=== PATIENT | male | born 1955 | race African-American/Black ===

== ENCOUNTER 2016-05-08 19:12 | Inpatient (IN) | payer MEDICARE, SELFPAY ==
--- NOTE | ~2016-05-08 | PN ---
Unit #: [id number] #: [id number] Patient: KYLER ROJAS [id number] [facility] [address] [place] [address] [id number] I MR#: [id number] NAME: KYLER ROJAS SR ROOM: P174 Age: 60 Sex: M Admission Date: 05/08/2016 : 1955 Attending Physician: Agnieszka Bowen M.D. Admitting Physician: Agnieszka Bowen M.D. Primary Care Physician: Primary Care Physician Joanna GAMEZ PROGRESS NOTES DATE OF SERVICE: 05/12/2016 SUBJECTIVE Mr. Rojas is a 60-year-old male with substance abuse and mood disorder, who was seen today and chart was reviewed and the case was discussed with the staff. He has been anxious, withdrawn, and rather seclusive to himself and remained confused, anxious, restless, and has been urinating on the bed guerrero and has had a wheelchair next to him as he has not been able to function very well and has been unsteady on his feet and stated there is some delirium tremens like episode. MENTAL STATUS EXAMINATION Middle-aged male, who was casually dressed with marginal personal hygiene, appears to be in slight distress and discomfort. He was awake and alert with impaired attention and concentration. His mood was anxious with a congruent affect. His speech was slow and restricted in content. His thought processes were disorganized with some looseness of associations. His insight and judgment remain significantly impaired. TREATMENT PLAN 1. We will continue him on his current medications and treatment protocol. We will monitor his response and make further adjustments as needed. 2. We will continue to follow up. Dictated by... Dank Haney/phani TD: 05/12/2016 17:13 JOB #: [id number] Unit #: [id number] #: [id number] Patient: KYLER ROJAS [facility] PROGRESS NOTES X Agnieszka Bowen MD PROGRESS NOTE
--- NOTE | ~2016-05-08 | DS ---
Unit #: [id number] #: [id number] Patient: KYLER ROJAS SR [id number] [facility] [address] [place] [address] [id number] MR#: [id number] NAME: KYLER ROJAS SR ROOM: P174 Age: 60 Sex: M Admission Date: 05/08/2016 : 1955 Discharge Date: 05/15/2016 Attending Physician: Agnieszka Bowen M.D. Primary Care Physician: Primary Care Physician No DISCHARGE SUMMARY IDENTIFYING DATA Mr. Rojas is a 60-year-old male, who is a resident of [place], [place], and is known to us from previous encounter, was transferred to us from Emergency [facility] at [facility]. DISCHARGE DIAGNOSES Psychiatric: Major depressive disorder, recurrent, moderate, without psychotic features; alcohol dependence, moderate and acute withdrawals. Medical: Hypertension, diabetes mellitus, chronic pain. Stressors: Moderate psychosocial stressors. HISTORY OF PRESENT ILLNESS Please see initial psychiatric evaluation for details. PAST PSYCHIATRIC HISTORY Please see initial psychiatric evaluation for details. PAST MEDICAL HISTORY Please see initial psychiatric evaluation for details. HOSPITAL COURSE The patient was admitted to the adult chemical dependency unit at [facility] and was oriented to the hospital environment. Routine p.r.n. medications were initiated and was started on the alcohol detox protocol and was closely monitored. However, he had a rather complicated course and did go into delirium tremens and level of precautions were increased and he was closely monitored. Medications were adjusted as well and Seroquel to cut down on psychosis and help with sleep was initiated as well and he was closely monitored. He was taking the medications regularly and was tolerating them fairly well and was able to come out of the detox without any complications and was willing to continue treatment on an outpatient basis and as such, it was decided that he will be discharged home and will continue treatment on an outpatient basis. DISCHARGE CONDITION Stable. PROGNOSIS Fair. Dictated by... Unit #: [id number] #: [id number] Patient: KYLER ROJAS SR Agnieszka Bowen M.D. IAA/modl TD: 05/15/2016 23:37 JOB #: [id number] DISCHARGE SUMMARY Page 1 of 1 X Agnieszka Bowen MD DISCHARGE SUMMARY
--- NOTE | ~2016-05-08 | PN ---
Unit #: [id number] #: [id number] Patient: KYLER ROJAS [id number] [facility] [address] [place] [address] [id number] MR#: [id number] NAME: KYLER ROJAS SR ROOM: P174 Age: 60 Sex: M Admission Date: 05/08/2016 : 1955 Attending Physician: Agnieszka Bowen M.D. Admitting Physician: Agnieszka Bowen M.D. Primary Care Physician: Primary Care Physician Joanna GAMEZ PROGRESS NOTES DATE OF SERVICE: 05/13/2016 SUBJECTIVE Mr. Rojas is a 60-year-old male who was seen today and chart was reviewed and case was discussed with the staff. He remains anxious, withdrawn, seclusive to himself in his bed, and has not been able to perform activities of daily living. It appears that his confusion has been dissipating slowly. Meanwhile, he is now compliant with treatment recommendation and has been taking the medications and tolerating them fairly well. MENTAL STATUS EXAMINATION Middle-aged male who was casually dressed with marginal personal hygiene, appears to be in slight distress and discomfort. He was awake and alert with impaired attention and concentration. His mood was anxious with a congruent affect. He denies any suicidal or homicidal ideations. His insight and judgment remain slightly impaired. TREATMENT PLAN We will continue him on his current medications and treatment protocol. We will monitor his response to the medications and make further adjustments as needed. Dictated by... Dank Haney/phani TD: 05/14/2016 18:13 JOB #: [id number] [facility] PROGRESS NOTES Page 1 of 1 X Agnieszka Bowen MD X PROGRESS NOTE
--- NOTE | ~2016-05-08 | HP ---
Unit #: [id number] #: [id number] Patient: KYLER ROJAS SR [id number] [place] [address] [id number] I MR#: [id number] NAME: KYLER ROJAS SR ROOM: P174 Age: 60 Sex: M Admission Date: 05/08/2016 : 1955 Attending Physician: Agnieszka Bowen M.D. Admitting Physician: Agnieszka Bowen M.D. Primary Care Physician: Primary Care Physician No HISTORY AND PHYSICAL HISTORY OF PRESENT ILLNESS Kyler is a 60 year old admitted to [facility] because of his abuse of alcohol. He is detoxing. PAST MEDICAL HISTORY 1. Long history of alcohol abuse. 2. Cardiac valvular disease. PAST SURGICAL HISTORY 1. Left hip replaced with multiple revisions. 2. Intestinal resection. 3. 2 cardiac valves replaced. 4. Left foot. ALLERGIES No known drug allergies. SOCIAL HISTORY Smokes less than one pack per day. Drinks at least four 24 ounce beers on a daily basis and denied illicit drug use. FAMILY HISTORY Medically noncontributory. REVIEW OF SYSTEMS CONSTITUTIONAL: No fever or chills. HEENT: Denies any sore throat, ear pain or runny nose. CARDIOVASCULAR: Denies chest pain, irregular heart rhythm or palpitations. CHEST: Denies shortness of breath or cough. No hemoptysis. GASTROINTESTINAL: Denies nausea, vomiting, diarrhea or chronic constipation. ENDOCRINE: Denies history of increased thirst or urination. No recent significant weight loss or gain. GENITOURINARY: Denies dysuria, frequency, or hematuria. SKIN: Denies any rashes. HEMATOLOGIC: Denies history of increased bleeding or bruising. MUSCULOSKELETAL: Denies any hot, swollen joints. No generalized muscle pain. NEUROLOGIC: Denies problems with vision or speech. No frequent, severe headaches. No numbness, tingling or weakness in any extremities. Denies loss of bladder or bowel control. Unit #: [id number] #: [id number] Patient: KYLER ROJAS SR CURRENT MEDICATIONS 1. Detox protocol 2. Lexapro 20 mg daily 3. Lortab 7.5 1 tab q.4 hr. p.r.n. PHYSICAL EXAMINATION GENERAL: Alert, elderly gentleman appearing much much older than his stated age of 60. No apparent distress. VITAL SIGNS: Blood pressure 140/105, heart rate 80, respirations 16, temperature 98.6. WEIGHT: 149 pounds. HEIGHT: 5'8". SKIN: Warm and dry without rash or lesion. HEENT: Normocephalic. TMs not viewed. Oral and nasal passages clear. Conjunctivae clear. Pupils equal, round and reactive to light and accommodation. Extraocular movements intact. NECK: Supple without lymphadenopathy or thyromegaly. HEART: Regular rate and rhythm with a 3 to 4 over 6 harsh holosystolic murmur. LUNGS: Clear. ABDOMEN: Soft, nontender. : Not done. EXTREMITIES: No evidence of cyanosis, clubbing or edema. Moves all extremities without focal deficit. NEUROLOGICAL: Grossly within normal limits. Cranial Nerves: II: Visual kong are intact. III, IV AND : Extraocular movements are intact. Pupils are equal, round and reactive to light. V: Facial sensation is grossly normal. VII: Facial movements and expression are normal. VIII: Auditory acuity grossly intact. IX, X: Uvula is midline. Phonation is normal. XI: Patient shrugs shoulders and turns head normally. XII: Tongue protrudes in the midline. Sensory and Motor Function: Sensory and motor sensation is grossly normal. Motor: moves all extremities well. Coordination: Gait he does walk with the assistance of a cane and is currently one to one because he is unsteady on his feet. Deep Tendon Reflexes: Intact. IMPRESSION Psychiatric admission RECOMMENDATIONS PSYCHIATRIC: Per psychiatrist. MEDICAL: I see no contraindications to participating in facility's activities. MEDICAL PROGNOSIS Good. MEDICAL CONDITION Stable. Dictated by... Nikki Cheek P.A.-C. for Unit #: [id number] #: [id number] Patient: KYLER ROJAS Dank Marquis/ignacio TD: 05/09/2016 21:05 JOB #: [id number] HISTORY AND PHYSICAL X Nikki Cheek HISTORY AND PHYSICAL
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
--- NOTE | ~2016-05-08 | PN ---
Unit #: [id number] #: [id number] Patient: KYLER ROJAS [id number] [facility] [address] [place] [address] [id number] I MR#: [id number] NAME: KYLER ROJAS SR ROOM: P174 Age: 60 Sex: M Admission Date: 05/08/2016 : 1955 Attending Physician: Agnieszka Bowen M.D. Admitting Physician: Agnieszka Bowen M.D. Primary Care Physician: Primary Care Physician No [facility] PROGRESS NOTES DATE OF SERVICE 05/14/2016 DISCUSSION Mr. Rojas is a 60-year-old male with substance abuse and mood disorder who was seen today. Chart was reviewed and case was discussed with the staff. He remains anxious, withdrawn, depressed, and rather seclusive to himself. Meanwhile, he has been complaining of still having some significant pain in his back. However, he has been awake and alert and appears to be coming out of the delusion tremens without any further confusion or disorientation. MENTAL STATUS EXAMINATION Middle-aged male who is casually dressed with fair personal hygiene, appears to be in no acute distress or discomfort. He was awake and alert with impaired attention and concentration. His mood is anxious and depressed with congruent affect. His speech is slow and restricted in content. He denies any suicidal or homicidal ideations and also denies any auditory or visual hallucinations. His insight and judgment remain slightly impaired. TREATMENT PLAN 1. We will continue him on his current treatment protocol. We will monitor his response to the medications and make further adjustments as needed. 2. We will continue to follow up. Dictated by... Dank Haney/hilda TD: 05/15/2016 11:56 JOB #: [id number] Unit #: [id number] #: [id number] Patient: KYLER ROJAS SR [facility] PROGRESS NOTES Page 1 of 1 X Agnieszka Bowen MD X PROGRESS NOTE
--- NOTE | ~2016-05-08 | PN ---
Unit #: [id number] #: [id number] Patient: KYLER ROJAS [id number] [facility] [address] [place] [address] [id number] MR#: [id number] NAME: KYLER ROJAS SR ROOM: P174 Age: 60 Sex: M Admission Date: 05/08/2016 : 1955 Attending Physician: Agnieszka Bowen M.D. Admitting Physician: Agnieszka Bowen M.D. Primary Care Physician: Primary Care Physician Joanna DILLARD NOTES DATE OF SERVICE: 05/11/2016 SUBJECTIVE Mr. Roajs is a 60-year-old male with mood disorder and substance abuse, who was seen today and chart was reviewed, and case was discussed with the staff. He is in acute delirium tremens with confusion, disorientation, unable to carry on any meaningful conversation, and as such, has been maintained on one-to-one level of precautions. MENTAL STATUS EXAMINATION Middle-aged male, who was casually dressed with fair personal hygiene, appears to be in no acute distress or discomfort. He was awake and alert with impaired attention and concentration. His mood was anxious with a congruent affect. His speech was slow and restricted in content. His thought processes were disorganized with looseness of associations and thought blocking and confusion with paranoid ideation. His insight and judgment remain significantly impaired. TREATMENT PLAN 1. We will continue him on his current medications and treatment protocol. We will monitor his response to the medications and make further adjustments as needed. 2. We will continue to follow up. Dictated by... Dank Haney/phani TD: 05/11/2016 23:33 JOB #: [id number] [facility] PROGRESS NOTES X Agnieszka Bowen MD X PROGRESS NOTE
--- NOTE | ~2016-05-08 | PN ---
Unit #: [id number] #: [id number] Patient: KYLER ROJAS [id number] [facility] [address] [place] [address] [id number] I MR#: [id number] NAME: KYLER ROJAS SR ROOM: P174 Age: 60 Sex: M Admission Date: 05/08/2016 : 1955 Attending Physician: Agnieszka Bowen M.D. Admitting Physician: Agnieszka Bowen M.D. Primary Care Physician: Primary Care Physician Joanna GAMEZ PROGRESS NOTES DATE OF SERVICE: 05/10/2016 SUBJECTIVE Mr. Rojas is a 60-year-old male with substance abuse and mood disorder, who was seen today and chart was reviewed and the case was discussed with the staff, who reports that the patient has gone into delirium tremens and was seen to be rather unsteady in his feet as of yesterday and was having some fall however, and it started getting worse later on in the afternoon or early evening when he was tremors, was confused, anxious, restless, disorganized, disoriented, and had to be placed on one-to-one level of precautions, where he was seen lying in his bed and was unable to carry on a meaningful conversation. MENTAL STATUS EXAMINATION Middle-aged male, who was casually dressed with a fair personal hygiene, appears to be in slight distress and discomfort. He was confused and disoriented and as such, rest of the mental status examination could not be completed. TREATMENT PLAN We will continue him on his current medications and detox protocol and we will monitor his response and make further adjustments as needed. Dictated by... Dank Haney/phani TD: 05/10/2016 20:08 JOB #: [id number] [facility] PROGRESS NOTES X Agnieszka Bowen MD PROGRESS NOTE
[2016-05-11 09:30] LABS: URINE APPEARANCE CLEAR; URINE BILIRUBIN NEG (NEG); URINE BLOOD NEG (NEG); URINE COLOR YELLOW; URINE GLUCOSE NEG (NEG); URINE KETONE NEG (NEG); URINE LEUKOCYTE ESTERASE NEG (NEG); URINE NITRATE NEG (NEG); URINE PH 5.5 (5-8); URINE PROTEIN NEG (NEG); URINE SPECIFIC GRAVITY 1.014 (1.003-1.035); URINE UROBILINOGEN 0.2 MG/DL (NEG)
[2016-05-11 10:00] LABS: AMPHETAMINE NEG (NEG); BARBITURATES NEG (NEG); BENZODIAZEPINES POS (NEG); COCAINE NEG (NEG); MARIJUANA NEG (NEG); OPIATES POS (NEG); TRICYCLIC ANTIDEPRESSANTS POS (NEG); U METHADONE NEG (NEG)
== END 2016-05-15 09:40 | disposition home or self-care (01) | DRG 885 ==
LOC: P1E 19:12 → POF 22:09 → P1E 22:10
PROVIDERS: Psychiatry & Neurology Psychiatry
PROC: HZ2ZZZZ Detoxification Services for Substance Abuse Treatment (ICD-10-PCS; principal; 2016-05-08)
DX: F33.1 Major depressive disorder, recurrent, moderate (principal); F10.231 Alcohol dependence with withdrawal delirium; F10.230 Alcohol dependence with withdrawal, uncomplicated; I10 Essential (primary) hypertension; E11.9 Type 2 diabetes mellitus without complications; Z79.4 Long term (current) use of insulin; G89.29 Other chronic pain; Y90.0 Blood alcohol level of less than 20 mg/100 ml
CPT/HCPCS: 80307; 81003; 86592

== ENCOUNTER → 2016-07-31 | Outpatient (CLI) | payer MEDICARE, SELFPAY ==
--- NOTE | ~2016-07-31 | CT57 ---
[facility] A Service [facility] RADIOLOGY TEXT RESULTS PATIENT: KYLER ROJAS SR LOCATION: [facility] : 59 UNIT #: [id number] AGE: [address]: LIZY ROMAN MD SEX: M ORDER DR: [id number] [address] [address] [id number] O MR#: [id number] Acc #: [id number] NAME: KYLER ROJAS : 1955 SEX: M STUDY DATE/TIME: 07/31/2016 11:29 UNIT: [facility] ROOM: STUDY DESCRIPTION: CT Chest Wo Cont Attending Physician: Lizy Roman M.D. Referring Physician: Lizy Roman M.D. Ordering Physician: Lizy Roman M.D. Primary Care Physician: Lizy Roman M.D. MEDICAL IMAGING REPORT This report is preliminary unless electronic signature is present. EXAM CT chest without contrast DATE 07/31/2016 HISTORY 60-year-old male with shortness of breath for 1 year or more, getting worse. Recently diagnosed with a pulmonary nodule at the physician's office. History of sickle cell disease, heart surgery 1-2 years ago with valve replacement. COMPARISON AP portable chest radiograph 06/30/2015. There is no more recent chest imaging at this institution for comparison. No prior CT chest at this institution. PROCEDURE 2 mm noncontrast axial images through the chest. Sagittal and coronal reformatted images were obtained. This CT exam was performed with one or more of the following radiation dose reduction techniques: automatic control, adjustment of mA and/or kV according to patient size, and iterative reconstruction. FINDINGS Severe emphysematous changes are present. Band-like scarring is demonstrated anteriorly within the right upper lobe, within the left lower lobe at the costophrenic angle, to a lesser degree at lingula and right mid lobe. Traction bronchiectasis or cylindrical bronchiectatic changes are demonstrated within the right middle lobe. Cylindrical bronchiectasis in the bilateral lower lobes. No abnormal bronchial wall thickening or mucous plugging. [facility] A Service of [facility] RADIOLOGY TEXT RESULTS PATIENT: KYLER ROJAS SR LOCATION: [facility] : 59 UNIT #: [id number] AGE: [address]: LIZY ROMAN MD SEX: M ORDER DR: No suspicious pulmonary nodules are identified. No acute airspace disease. There is mild cardiac enlargement with signs of aortic valve replacement. Pulmonary valve replacement also noted. There is ectasia of the mid ascending thoracic aorta, 3.9 cm and ectasia in the mid descending thoracic aorta, 2.9 cm. Mildly enlarged bilateral axillary lymph nodes are present, including a left axillary node measuring 1.5 x 1 cm. Enlarged mediastinal lymph nodes are present, including a right lower paratracheal node measuring 1.4 x 2 cm short axis, and an AP window node measuring approximately 2.1 x 1.3 cm. 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 Presumed cholecystectomy. Trace perihepatic ascites. What appear to be small varicosities or splenic nodule remnants are thought to be present in the left upper quadrant of the abdomen. No acute appearing osseous abnormalities. IMPRESSION 1. No suspicious pulmonary nodules are seen on today's CT chest examination. Patient states that he had imaging at referring physician's office recently. The location of this examination, images or results are not available or not provided at the time of this interpretation. Please correlate with those recent findings. 2. Severe emphysema. 3. Chronic-appearing linear scarring within the bilateral lower lobes, right middle lobe, right upper lobe. 4. Cylindrical bronchiectasis in the bilateral lower lobes and right middle lobe. No evidence of mucous plugging or abnormal bronchial wall thickening. 5. Mildly enlarged mediastinal lymph nodes particularly within the right paratracheal and prevascular region, mildly prominent bilateral axillary lymph nodes. These findings are nonspecific and could be related to patient's known history of sickle cell disease. Both benign and malignant etiologies remain in the differential. Correlate with any outside available CT chest. No prior CT chest at this institution. Alternately, [address] chest follow-up would be recommended. 6. 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 7. 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 8. 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 9. Trace peripelvic ascites. 10. Presumed cholecystectomy. 1. STS. [facility] A Service of [facility] RADIOLOGY TEXT RESULTS PATIENT: KYLER ROJAS SR LOCATION: [facility] : 59 UNIT #: [id number] AGE: [address]: LIZY ROMAN MD SEX: M ORDER DR: Dictated by... Riya Brenner M.D. THIS IS AN ELECTRONICALLY VERIFIED REPORT Riya Brenner M.D. at 08/03/2016 8:39 AM EL/jennifer TD: 08/01/2016 18:59 JOB #: [id number] MEDICAL IMAGING REPORT Page 1 of 1
== END | disposition home or self-care (01) ==
LOC: SCT 07-11 11:40
DX: R91.1 Solitary pulmonary nodule (principal); J43.9 Emphysema, unspecified; J47.9 Bronchiectasis, uncomplicated; R59.0 Localized enlarged lymph nodes; I77.810 Thoracic aortic ectasia; Z95.2 Presence of prosthetic heart valve
CPT/HCPCS: 71250

== ENCOUNTER → 2016-08-17 | Outpatient (CLI) | payer MEDICARE, SELFPAY ==
--- NOTE | ~2016-08-17 | TH ---
Unit #: [id number] #: [id number] Patient: KYLER ROJAS [id number] [address] [address] [id number] O MR#: [id number] NAME: KYLER ROJAS, : 1955 SEX: M STUDY DATE/TIME: 08/17/2016 UNIT: [facility] ROOM: STUDY DESCRIPTION: Attending Physician: Alayna Cheung M.D. Referring Physician: Alayna Cheung M.D. Primary Care Physician: Alayna Cheung M.D. CARDIOLOGY REPORT EXAM Lexiscan Cardiolite stress test, nuclear portion. PROCEDURE Using technetium 99m labeled Cardiolite, rest and stress SPECT images were obtained. Multiple SPECT images were obtained in various views including horizontal and vertical long axis and short axis views of the left ventricle. Images were obtained by gated SPECT method. The patient was administered 12 mCi of Cardiolite at rest. Patient was administered 32.3 mCi of Cardiolite after Lexiscan infusion was completed. On the stress images, there is mild decreased isotope activity in the inferoseptal wall. The rest images show normal perfusion. Comparing rest and stress images, a small area of possible stress-induced ischemia involving the inferoseptal wall of the left ventricle cannot be ruled out. The left ventricular ejection fraction is calculated to be 55%. There is septal hypokinesis seen. CONCLUSION 1. A small area of stress-induced ischemia involving the inferoseptal wall of the left ventricle cannot be ruled out. 2. The left ventricular ejection fraction is calculated to be 55%. 3. There is septal hypokinesis seen. 4. Abnormal Lexiscan Cardiolite stress test. 5. Technically limited study due to increased gut uptake. Clinical correlation is requested. Dictated by... Dank Munoz TD: 08/17/2016 16:20 JOB #: [id number] Unit #: [id number] #: [id number] Patient: KYLER ROJAS CARDIOLOGY REPORT Page 1 of 1 X Trish Prince MD <ELECTRONICALLY SIGNED> 09/15/16 1429 CARDIOLOGY REPORT
== END | disposition home or self-care (01) ==
LOC: CNUC 06:39
DX: R06.00 Dyspnea, unspecified (principal); R94.39 Abnormal result of other cardiovascular function study
CPT/HCPCS: 78452; 93017; A9500; J2785

== ENCOUNTER 2016-09-25 13:51 | Emergency (ER) | payer MEDICARE ==
[~2016-09-25] VITALS: Ht 172.7 cm; Wt 67.6 kg
[2016-09-25 14:33] LABS: URINE SOURCE CLEAN CATCH
[2016-09-25 14:38] LABS: URINE APPEARANCE CLEAR; URINE BILIRUBIN NEG (NEG); URINE BLOOD NEG (NEG); URINE COLOR YELLOW; URINE GLUCOSE NEG (NEG); URINE KETONE NEG (NEG); URINE LEUKOCYTE ESTERASE NEG (NEG); URINE NITRATE NEG (NEG); URINE PROTEIN TRACE (NEG)
[2016-09-25 14:42] LABS: CULTURE INDICATED? NO
[2016-09-25 16:06] LABS: AMPHETAMINE NEG (NEG); BARBITURATES NEG (NEG); BENZODIAZEPINES NEG (NEG); COCAINE NEG (NEG); MARIJUANA NEG (NEG); OPIATES POS (NEG); TRICYCLIC ANTIDEPRESSANTS NEG (NEG); U METHADONE NEG (NEG)
[2016-09-25 21:32] LABS: ALBUMIN SERUM 3.9 g/dL (3.5-5.0); BILIRUBIN, DIRECT 0.5 mg/dL (0.0-0.2); BILIRUBIN,INDIRECT 1.4 mg/dL (0.0-0.9); BILIRUBIN,TOTAL 1.9 mg/dL (0.2-2.0); BUN/CREATININE RATIO 15.45; CALCIUM SERUM 8.7 mg/dL (8.4-10.2); CREATININE SERUM 1.1 mg/dL (0.6-1.4); GLOM FILT RATE Estimated 84.7 mL/min (>60); POTASSIUM 3.9 mmol/L (3.5-5.1)
[2016-09-25 21:42] LABS: BASOPHIL# 0.1 X10e3 (0-0.3); BASOPHIL% 0.9 % (0-2.5); DIFF IND YES; EOSINOPHIL# 0.1 X10e3 (0-0.7); EOSINOPHIL% 0.7 % (0.0-7.0); HEMATOCRIT 36.1 % (38.0-50.0); HEMOGLOBIN 12.3 gm/dL (13.0-16.0); LYMPHOCYTE# 5.4 X10e3 (1.0-3.5); MEAN CELL VOLUME 77.2 FL (83-96); MEAN CORPUSCULAR HEMOGLOBIN 26.3 PG (28-34); MEAN PLATELET VOLUME 8.9 FL (6.5-11.5); MONOCYTE# 0.4 X10e3 (0-1.0); NEUTROPHIL# 2.7 X10e3 (1.5-7.1); NEUTROPHIL% 31.4 % (40-75); PLATELET COUNT 379 X10e3 (140-420); RED BLOOD COUNT 4.67 X10e (3.90-5.60); RED CELL DISTRIBUTION WIDTH 25.8 % (11.0-15.5); RETICULOCYTE 1.3 % (0.5-2.8); WHITE BLOOD COUNT 8.7 X10e3 (4.0-10.5)
[2016-09-25 22:06] LABS: HYPERSEGMENTED POLYS PRESENT; MICROCYTOSIS MOD; NUCLEATED RED BLOOD CELL 1 /100 (0); PLATELET ESTIMATE NORMAL (NORMAL)
[2016-09-25 22:07] LABS: SPHEROCYTE SL
== END 2016-09-25 19:00 | disposition home or self-care (01) ==
LOC: CED 13:51
PROVIDERS: Emergency Medicine
DX: F10.129 Alcohol abuse with intoxication, unspecified (principal); F17.200 Nicotine dependence, unspecified, uncomplicated
CPT/HCPCS: 36415; 80048; 80076; 80307; 81003; 85025; 85044; 99284; G0480